=== PATIENT | male | born 1975 | race Caucasian/White ===

== ENCOUNTER 2017-05-27 09:00 | Inpatient (IN) | payer OTHER ==
[~2017-05-27 09:00] MED LIST: Acetaminophen 500 MG Tab PO ONE; Celecoxib 200 MG Cap PO ONE; Gabapentin 300 MG Cap PO ONE
[2017-05-27] MEDS ORDERED: Dextrose 5%-Lactated Ringers 1,000 ML IV SCH (09:30)
[2017-05-27] MEDS: Scopolamine 1.5 MG Transdermal Patch TRDERM SCH ×2 (09:36→19:09)
[2017-05-27] MEDS ORDERED: Succinylcholine 200 MG/10 ML MDV ONE ×2 (10:37→13:21)
[2017-05-27] MEDS ORDERED: Neostigmine Methylsulfate 1 MG/ML 5 ML Syringe ONE (10:37)
[2017-05-27] MEDS ORDERED: Dexamethasone 4 MG/ML SDV ONE (10:37)
[2017-05-27] MEDS ORDERED: Glycopyrrolate 0.2 MG/ML 5 ML MDV ONE (10:37)
[2017-05-27] MEDS ORDERED: Ondansetron 4 MG/2 ML SDV ONE (10:37)
[2017-05-27] MEDS ORDERED: Rocuronium 50 MG/5 ML Vial ONE (10:37)
[2017-05-27] MEDS ORDERED: Propofol 200 MG/20 ML SDV ONE (10:37)
[2017-05-27] MEDS ORDERED: Lactated Ringers 1,000 ML ONE ×2 (10:40→13:32)
[2017-05-27] MEDS ORDERED: Ropivacaine 60 ML, Dexamethasone 8 MG, EPINEPHrine 0.4 MG, Sodium Chloride 0.9% 17.6 ML NERVRT SCH ×4 (11:00)
[2017-05-27] MEDS ORDERED: Ketamine 500 MG/5 ML MDV IV SCH (11:00)
[2017-05-27] MEDS ORDERED: Lidocaine 2% 100 MG/5 ML Syringe IVPUSH ONE (11:00)
[2017-05-27] MEDS ORDERED: cefOXitin 2 GM Vial ONE (11:01)
[2017-05-27] MEDS: cefOXitin 2 GM in Sodium Chloride 0.9% 50 ML IV ONE ×2 (11:59→16:35)
[2017-05-27] MEDS ORDERED: fentaNYL 100 MCG/2 ML SDV ONE ×2 (12:50→13:27)
[2017-05-27] MEDS ORDERED: Labetalol 20 MG/4 ML Syringe ONE (13:31)
[2017-05-27] MEDS: Lidocaine 0.4%/D5W 2 GM/500 ML BAG IV SCH (16:35)
[2017-05-27] MEDS: SCOPOLAMINE PATCH CHECK TOP SCH (16:35)
[2017-05-27] MEDS ORDERED: hydrOXYzine HCl 100 MG/2 ML SDV IM PRN (17:00)
[2017-05-27] MEDS ORDERED: diphenhydrAMINE 50 MG/ML SDV IVPUSH PRN (17:00)
[2017-05-27] MEDS ORDERED: Metoclopramide 10 MG/2 ML SDV IVPUSH PRN (17:00)
[2017-05-27] MEDS ORDERED: SCOPOLAMINE PATCH ASK TOP SCH (17:00)
[2017-05-27] MEDS ORDERED: Labetalol 20 MG/4 ML Syringe IVPUSH PRN (17:00)
[2017-05-27] MEDS: Heparin Sodium 5,000 Units/ML Vial SUBCUT SCH (17:19)
[2017-05-27] MEDS: Pantoprazole 40 MG Vial IVPUSH SCH (17:20)
[2017-05-27] MEDS: Acetaminophen Soln 650 MG/20.3 ML UD Cup PO SCH ×2 (17:20→23:49)
[2017-05-27] MEDS: MVI, Adult with Vitamin K 10 ML, Thiamine 200 MG, Chromium/Copper/Mang/Selen/Zn 1 ML in... IV SCH ×4 (17:25)
[2017-05-27] MEDS: Ondansetron 4 MG/2 ML SDV IVPUSH PRN (17:25)
[2017-05-27] MEDS: cefOXitin 2 GM in Sodium Chloride 0.9% 50 ML IV SCH ×2 (17:25→23:45)
[2017-05-27] MEDS: Gabapentin 250 MG/5 ML Solution ML 470 ML Bottle PO SCH ×2 (17:46→21:24)
[2017-05-27] MEDS ORDERED: Acetaminophen Soln 650 MG/20.3 ML UD Cup PO SCH (18:00)
[2017-05-27] MEDS: Dextrose 5%-Lactated Ringers 1,000 ML IV SCH (23:45)
[2017-05-28] MEDS: Heparin Sodium 5,000 Units/ML Vial SUBCUT SCH ×3 (02:07→18:09)
[2017-05-28] MEDS ORDERED: Iohexol 647 MG/ML 50 ML SDV PO STA (02:11)
[2017-05-28] MEDS: Lidocaine 0.4%/D5W 2 GM/500 ML BAG IV SCH (05:01)
[2017-05-28] MEDS: Acetaminophen Soln 650 MG/20.3 ML UD Cup PO SCH ×3 (05:17→18:09)
[2017-05-28] MEDS: Gabapentin 250 MG/5 ML Solution ML 470 ML Bottle PO SCH ×4 (05:17→21:04)
[2017-05-28] MEDS: cefOXitin 2 GM in Sodium Chloride 0.9% 50 ML IV SCH ×2 (05:18→11:38)
[2017-05-28] MEDS: Dextrose 5%-Lactated Ringers 1,000 ML IV SCH (06:45)
--- NOTE | 2017-05-28 08:27 | PN ---
DATE OF SERVICE: 05/28/2017 SUBJECTIVE: Jadiel is postop day #1. He does report pressure, he states he feels like gas in his mid abdomen. He said it feels a little bit tight. He has been up walking. Denies any dysphagia. Upper GI this morning was normal. Vital signs have been stable. OBJECTIVE: GENERAL: Jadiel Laird is a 42-year-old male. He is alert and oriented. VITAL SIGNS: TPR is 99.2, 61, 16. Blood pressure 125/63. HEENT: Negative. NECK: Supple. HEART: Regular rate and rhythm. LUNGS: Clear. ABDOMEN: Dressing dry and intact. Abdominal binder is on. ERENDIRA drain intact draining a light pink serous drainage of 90 mL. EXTREMITIES: SCDs are on and there is no peripheral edema. ASSESSMENT: Laparoscopic Anayeli-en-Y gastric bypass surgery, liver biopsy for morbid obesity, and hepatomegaly. PLAN: 1. Step II gastric bypass diet without cereal. 2. Decrease IV to 100 mL per hour at noon. Dressing off. 3. May shower. 4. Allopurinol which he takes at home, 300 mg p.o. daily. 5. Good pulmonary toilet encouraged. 6. We will evaluate p.r.n. or in a.m. Stefani Wang PA-C /[id number]
[2017-05-28] MEDS: Celecoxib 200 MG Cap PO SCH (09:21)
[2017-05-28] MEDS: Allopurinol 300 MG Tab PO SCH (09:21)
[2017-05-28] MEDS: SCOPOLAMINE PATCH CHECK TOP SCH (09:26)
--- NOTE | 2017-05-28 10:16 | CR ---
UGI wo KUB HISTORY: eval RY GBP FINDINGS: After administration of oral contrast, upright views were obtained. Post operative changes gastric bypass. Surgical drains in place. No evidence for leak. Contrast passes freely into proximal small bowel loops. IMPRESSION: No evidence for leak or obstruction.
[2017-05-28] MEDS ORDERED: Dextrose 5%-Lactated Ringers 1,000 ML IV SCH (12:00)
[2017-05-28] MEDS: Ondansetron 4 MG/2 ML SDV IVPUSH PRN (15:59)
[2017-05-28] MEDS: MVI, Adult with Vitamin K 10 ML, Thiamine 200 MG, Chromium/Copper/Mang/Selen/Zn 1 ML in... IV SCH ×4 (18:09)
[2017-05-28] MEDS: Pantoprazole 40 MG Vial IVPUSH SCH (18:09)
[2017-05-29] MEDS: Heparin Sodium 5,000 Units/ML Vial SUBCUT SCH ×2 (01:09→09:39)
[2017-05-29] MEDS: Acetaminophen Soln 650 MG/20.3 ML UD Cup PO SCH ×2 (01:09→05:24)
[2017-05-29] MEDS: Gabapentin 250 MG/5 ML Solution ML 470 ML Bottle PO SCH ×2 (05:24→09:37)
[2017-05-29] MEDS: Allopurinol 300 MG Tab PO SCH (08:18)
[2017-05-29] MEDS: Celecoxib 200 MG Cap PO SCH (08:18)
[2017-05-29 08:26] VITALS: BP 149/78
[2017-05-29] MEDS ORDERED: Cyanocobalamin (Vitamin B12) 1,000 MCG/ML SDV IM ONE (09:00)
[2017-05-29] MEDS: SCOPOLAMINE PATCH CHECK TOP SCH (09:01)
--- NOTE | 2017-05-30 02:07 | DISCH ---
ADMISSION DIAGNOSES: Morbid obesity, dyslipidemia, hypertension, coronary artery disease, gout, sleep apnea, multiple environmental allergies, and history of microscopic hematuria. DISCHARGE DIAGNOSES: Laparoscopic Anayeli-en-Y gastric bypass surgery, liver biopsy for morbid obesity and hepatomegaly on 05/27/2017. Remi Yip M.D. HISTORY: Jadiel Laird is a 42-year-old male with longstanding history of morbid obesity and increasing comorbidities. After preoperative evaluation, discussion of possible risks and possible complications, he wished to proceed with surgical procedure. HOSPITAL COURSE: Jadiel had a surgery on 05/27/2017. He had no operative complications. On postop day #1, his upper GI was normal. He was started on a step-2 gastric bypass diet without cereal. He was also started on his allopurinol, which is his only home medication. On postop day #2, his activity was good. His oral intake was adequate. Pain was well managed. He received adequate dietary instruction. Vital signs were stable, and he was able to be discharged to home. PHYSICAL EXAMINATION: GENERAL: Jadiel Laird is a 42-year-old male. VITAL SIGNS: Height 5 feet 9 inches, weight is 295 pounds, BMI is 43.6. TPR 97.8, 60, 16. Blood pressure 149/78. HEENT: Negative. NECK: Supple. HEART: Regular rate and rhythm. LUNGS: Clear. ABDOMEN: Incisions look good, 4x4s over ERENDIRA drain site. EXTREMITIES: Without peripheral edema. DISPOSITION: Discharged to home. CONDITION: Stable and improving. FOLLOWUP: With Stefani Wang PA-C, on 06/06/2017 at 10:00 a.m. HOME MEDICATIONS: 1. Tylenol 650 mg q.6 hours, 20.3 mL per cup, scheduled for 14 days. 2. Celebrex 200 mg p.o. daily for 14 days. 3. Allopurinol, take as directed, crush. 4. Milk of magnesia 30 mL, 2 were sent home with the patient to take 1 daily p.r.n. constipation. DISCHARGE INSTRUCTIONS: Diet after discharge: Drink 8 to 10 glasses of water a day. Diet is step-2 gastric bypass diet with no cereal. Activity: As tolerated. No lifting greater than 10 pounds for 2 weeks. Driving: Do not drive for 1 week. Shower/bathing: May shower. Notify provider if fever, increased pain, nausea, or vomiting. Wound incision care: Keep site clean and dry. Wear abdominal binder for 2 weeks and then as tolerated. Use incentive spirometer 10 times every hour while awake for 1 week.
--- NOTE | 2017-06-03 07:56 | OR ---
DATE OF PROCEDURE: 05/27/2017 PREOPERATIVE DIAGNOSIS: Morbid obesity. POSTOPERATIVE DIAGNOSES: 1. Morbid obesity. 2. Marked hepatomegaly. OPERATIVE PROCEDURES: 1. Laparoscopic Anayeli-en-Y gastric bypass with long-limb gastroenterostomy (89910 ). 2. Demarcus-Cut needle liver biopsy ([id number]). ANESTHESIA: General. SUPERVISOR DISPLAY FABRICATION: HOLA Garcia. INDICATION FOR PROCEDURE: This 42-year-old male is presenting with longstanding morbid obesity with increasingly significant comorbidities. After preoperative evaluation and discussion, he wished to proceed with a gastric bypass procedure. Potential risks of procedure including bleeding, infection, injury to underlying viscera, problems with leaks from the various GI tract closures, bowel obstruction over time, as well as possibility of cardiopulmonary, septic, or hemorrhagic complications leading to were discussed, and the patient wishes to proceed. DETAILS OF PROCEDURE: The patient was taken to the operating room, and after general endotracheal anesthesia was induced, he was placed in a lithotomy position. The orogastric tube was placed. Using continuous ultrasound, bilateral subcostal transversus abdominis plane blocks were placed using the standard formula. After the abdomen was prepped and draped, at 15 cm inferior and 5 cm left of the xiphoid process, a transverse incision was made, and the peritoneal cavity entered under direct vision with an Optiview trocar and inflated to 15 mmHg of CO2. Laparoscope was then reinserted. No underlying trocar insertion site injuries were seen. Following this, 5 additional trocars were placed across the upper and mid abdomen. A general exploration was undertaken. The patient was noted to have marked hepatomegaly with liver volume being roughly 2 to 3 times normal. Liver was grossly fatty infiltrated. Demarcus-Cut needle biopsy was obtained from left lobe of the liver. Minimal bleeding from the biopsy sites was controlled with electrocautery. The omentum was then divided in the midline up to the level of the transverse colon. This allowed identification of the small bowel to the ligament of Treitz. Small bowel was then traced out 100 cm distal to that point and was divided transversely with a ASHLEY stapler. Small bowel was then traced out additional 200 cm, where the [id number] enteroenterostomy was accomplished with an internal firing of the Endo-ASHLEY 60-mm stapler. Common opening was then closed transversely with the same stapler and the angles anastomosed. Mesenteric defect was approximated with some 0 Ethibond stitch, along with fibrin sealant. The divided end of Anayeli limb was from the mesentery for a few centimeters, which allowed an antecolic positioning of the Anayeli limb up to the level of the gastroesophageal junction without tension. The liver was then retracted anteriorly. The patient was noted not to have any identifiable diaphragmatic hernia. The gastrointestinal balloon catheter had been inflated to 15 mL and pulled up snugly against the EG junction. Gastric wall over the apex of the balloon was then marked with electrocautery and the balloon catheter deflated and pulled up from the esophagus. The lesser omental tissue adjacent to the gastric cardia was then incised, allowing dissection behind the stomach at that level. The pouch formation was initiated with a transverse firing of the ASHLEY stapler at the level of the cauterized sari in the gastric cardia and then completed with 2 additional firings of ASHLEY stapler up to and through the angle of His. Upon completion of the pouch, both staple lines were noted to be intact. The anvil of a 25-mm EEA stapler was attached to [place] sump type tube. The latter was brought down the mouth and taken out through a small opening in the gastric pouch, allowing the anvil likewise to be pulled down to within the gastric pouch. The divided end of the Anayeli limb was then opened and main body of the EEA stapler passed several centimeters into the lumen of small bowel and brought up the anvil and united with it, thus creating the gastrojejunostomy. Upon removal of the stapler, double donuts of mucosa were noted within it. The small bowel was closed off with a vascular staple line. Gastrojejunostomy was then reinforced with some 3-0 Vicryl seromuscular stitch, along with fibrin sealant. Leak test was accomplished with injection of 120 mL of air in the gastric pouch while submerged with cefoxitin-containing saline solution. No leaks were identified, and a single drain was placed through the left lateral trocar site and placed adjacent to the gastrojejunostomy and from there up into the splenic fossa. No further problems were noted. At this point, the trocars were removed and the peritoneal cavity deflated. Incisions were closed with some 0 Vicryl seromuscular stitch, along with the drain being affixed with 4-0 Vicryl stitch as well. The procedure was concluded. The patient was taken to the recovery room in a satisfactory condition. Remi Yip MD /[id number] MTDD
== END 2017-05-29 13:30 | disposition home or self-care (01) | DRG 621 ==
LOC: EDSTATUS 09:00 → JP.SDSSCHI 09:05 → JP.SDS 09:05 → JP.2SS 14:10
PROVIDERS: ADMIT Surgery; ATTEND Surgery
PROC: 0FB24ZX Excision of Left Lobe Liver, Percutaneous Endoscopic Approach, Diagnostic (ICD-10-PCS; principal; 2017-05-27)
PROC: 0D164ZA Bypass Stomach to Jejunum, Percutaneous Endoscopic Approach (ICD-10-PCS; principal; 2017-05-27)
DX: E66.01 Morbid (severe) obesity due to excess calories (principal); Z68.41 Body mass index [BMI] 40.0-44.9, adult; R16.0 Hepatomegaly, not elsewhere classified; E78.5 Hyperlipidemia, unspecified; G47.33 Obstructive sleep apnea (adult) (pediatric); M10.9 Gout, unspecified; Z87.891 Personal history of nicotine dependence; R31.29 Other microscopic hematuria; M25.562 Pain in left knee; M25.561 Pain in right knee; K76.0 Fatty (change of) liver, not elsewhere classified
CPT/HCPCS: 36415; 74240; 74240-26; 82962; 86850; 86900; 86901; 88307; 88313; 94762; A9270-GY; C9113; J0171; J0330; J0694; J1100; J1644; J2001; J2405; J2704; J2710; J2765; J2795; J3010; J3410; J3411; J3420; J7030; J7042; J7050; J7120; Q9967

== ENCOUNTER 2020-03-25 04:06 | Emergency (ER) | payer BC, OTHER ==
[2020-03-25] MEDS ORDERED: Tetracaine HCl/PF 0.5% 4 ML Bottle EYELF ONE (04:25)
[2020-03-25] MEDS ORDERED: Diphtheria,Pertussis(Acell),Tetanus Vaccine 0.5 ML SDV IM ONE (04:50)
[2020-03-25] MEDS ORDERED: Acetaminophen/oxyCODONE 325-5 MG Tab PO STA (04:50)
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
[2020-03-25 05:20] VITALS: BP 130/94; PULSE 84
== END 2020-03-25 05:15 | disposition home or self-care (01) ==
LOC: JP.ED 04:06
DX: S05.02XA Injury of conjunctiva and corneal abrasion without foreign body, left eye, initial encounter (principal); E66.9 Obesity, unspecified; Z68.30 Body mass index [BMI] 30.0-30.9, adult; Z79.899 Other long term (current) drug therapy; X58.XXXA Exposure to other specified factors, initial encounter; Z23 Encounter for immunization
CPT/HCPCS: 90471; 90715; 99283; A9270